=== PATIENT | female | born 1995 | race Caucasian/White ===

== ENCOUNTER 2016-11-25 00:30 | Emergency (ER) | payer MEDICAID ==
[~2016-11-25] VITALS: Ht 147.3 cm; Wt 127.0 kg
[2016-11-25 03:54] VITALS: BP 159/95
== END 2016-11-25 04:57 | disposition home or self-care (01) ==
LOC: ER 00:30
DX: S50.02XA Contusion of left elbow, initial encounter (principal); I10 Essential (primary) hypertension; K21.9 Gastro-esophageal reflux disease without esophagitis; W01.0XXA Fall on same level from slipping, tripping and stumbling without subsequent striking against object, initial encounter; Y93.89 Activity, other specified; Y99.8 Other external cause status; Y92.89 Other specified places as the place of occurrence of the external cause
CPT/HCPCS: 73090